=== PATIENT | female | born 1990 | race Two or more races ===

== ENCOUNTER 2018-12-03 16:33 | Emergency (ER) | payer SELFPAY ==
[2018-12-03] MEDS ORDERED: PROMETHAZINE HCL 25 MG TABLET PO ONE (18:26)
[2018-12-03] MEDS ORDERED: ACETAMINOPHEN 325 MG TABLET PO ONE (18:26)
--- NOTE | 2018-12-03 18:37 | ER Document Report ---
ED Medical Screen (RME) - General Chief Complaint: Abdominal Pain Stated Complaint: ABDOMINAL PAIN Time Seen by Provider: 12/03/18 18:18 Notes: Patient is a G1, P1 28-year-old female who presents to the emergency department with a chief complaint of lower abdominal pain. She states the pain is on bilateral sides. She has had her pain for the past week. She states that she has had some hot sweats on and off. She took 4 tests at home and 2 were positive and 2 were negative. Her last menstrual cycle was October 08 and states that she has irregular vaginal cycles. Exam: Mildly tender lower abdomen on bilateral sides. I have greeted and performed a rapid initial assessment of this patient. A comprehensive ED assessment and evaluation of the patient, analysis of test results and completion of medical decision making process will be conducted by an additional ED providers. TRAVEL OUTSIDE OF THE [place] IN LAST 30 DAYS: No - Related Data Allergies/Adverse Reactions: No Known Allergies Allergy (Verified 12/03/18 16:34) Past Medical History - Social History Frequency of alcohol use: None Drug Abuse: None Renal/ Medical History: Denies: Hx Peritoneal Dialysis Past Surgical History: Reports: Hx Section, Hx Tonsillectomy Physical Exam - Vital signs Vitals: Temp Pulse Resp BP Pulse Ox 98.6 F 121 H 16 126/75 H 98 12/03/18 16:38 12/03/18 16:38 12/03/18 16:38 12/03/18 16:38 12/03/18 16:38 Course - Vital Signs Vital signs: Temp Pulse Resp BP Pulse Ox 98.6 F 121 H 16 126/75 H 98 12/03/18 16:38 12/03/18 16:38 12/03/18 16:38 12/03/18 16:38 12/03/18 16:38
[2018-12-03 19:21] LABS: ABSOLUTE BASOPHILS # (AUTO) 0.1 10^3/uL (0.0-0.2); ABSOLUTE LYMPHOCYTES (AUTO) 2.4 10^3/uL (0.5-4.7); ABSOLUTE MONOCYTES (AUTO) 0.5 10^3/uL (0.1-1.4); ABSOLUTE NEUT (AUTO) 5.9 10^3/uL (1.7-8.2); BASOPHILS % (AUTO) 1.1 % (0-2); EOSINOPHILS % (AUTO) 0.4 % (0-6); HEMATOCRIT 41.1 % (36.0-47.0); HEMOGLOBIN 13.4 g/dL (12.0-15.5); LYMPHOCYTES % (AUTO) 27.2 % (13-45); MEAN CORPUSCULAR HEMOGLOBIN 28.4 pg (27.0-33.4); MEAN CORPUSCULAR HGB CONC 32.5 g/dL (32.0-36.0); MEAN CORPUSCULAR VOLUME 87 fl (80-97); MONOCYTES % (AUTO) 5.2 % (3-13); PLATELET COUNT 295 10^3/uL (150-450); RED CELL DISTRIBUTION WIDTH 12.9 % (11.5-14.0); SEGMENTED NEUTROPHILS % (AUTO) 66.1 % (42-78); TOTAL CELLS COUNTED % (AUTO) 100 %; WHITE BLOOD COUNT 8.9 10^3/uL (4.0-10.5)
[2018-12-03 19:36] LABS: ALBUMIN 5.1 g/dL (3.5-5.0); ALKALINE PHOSPHATASE 47 U/L (38-126); ANION GAP 11 (5-19); ASPARTATE AMINO TRANSFERASE 20 U/L (14-36); BILIRUBIN,DIRECT 0.2 mg/dL (0.0-0.4); BILIRUBIN,TOTAL 0.3 mg/dL (0.2-1.3); BLOOD UREA NITROGEN 12 mg/dL (7-20); CALCIUM 9.7 mg/dL (8.4-10.2); CARBON DIOXIDE 24 mmol/L (22-30); CHLORIDE 105 mmol/L (98-107); GLUCOSE 89 mg/dL (75-110); POTASSIUM 4.5 mmol/L (3.6-5.0); TOTAL PROTEIN 8.3 g/dL (6.3-8.2)
--- NOTE | 2018-12-03 20:11 | ER Document Report ---
ED GI/ - General Chief Complaint: Abdominal Pain Stated Complaint: ABDOMINAL PAIN Time Seen by Provider: 12/03/18 18:18 Notes: Patient is a 28-year-old female who presents to the emergency department with a chief complaint of lower abdominal pain. Patient states at home that she did have 2- tests and 2+ test. Patient states her last menstrual cycle was October 08, 2018. Patient states she is sexually active and does not use control. Patient states around November 25 she had 2 days of vaginal bleeding that she describes as a spotting. She states that this never turned into a full menstrual cycle for her. Patient reports nausea without vomiting or diarrhea. Patient denies any urinary symptoms. Patient denies fever. Patient states that the lower abdominal pain is sometimes worse on the right and sometimes worse on the left. TRAVEL OUTSIDE OF THE [place] IN LAST 30 DAYS: No - Related Data Allergies/Adverse Reactions: No Known Allergies Allergy (Verified 12/03/18 16:34) Past Medical History - General Information source: Patient - Social History Smoking Status: Current Every Day Smoker Frequency of alcohol use: None Drug Abuse: None Lives with: Family Family History: None Patient has suicidal ideation: No Patient has homicidal ideation: No - Past Medical History Cardiac Medical History: Reports: None Pulmonary Medical History: Reports: None EENT Medical History: Reports: None Neurological Medical History: Reports: None Endocrine Medical History: Reports: None Renal/ Medical History: Reports: None. Denies: Hx Peritoneal Dialysis Malignancy Medical History: Reports: None GI Medical History: Reports: None Musculoskeletal Medical History: Reports None Skin Medical History: Reports None Psychiatric Medical History: Reports: None Traumatic Medical History: Reports: None Infectious Medical History: Reports: None Past Surgical History: Reports: Hx Section, Hx Tonsillectomy Review of Systems - Review of Systems Constitutional: No symptoms reported EENT: No symptoms reported Cardiovascular: No symptoms reported Respiratory: No symptoms reported Gastrointestinal: See HPI Genitourinary: No symptoms reported Female Genitourinary: See HPI Musculoskeletal: No symptoms reported Skin: No symptoms reported Hematologic/Lymphatic: No symptoms reported Neurological/Psychological: No symptoms reported Physical Exam - Vital signs Vitals: Temp Pulse Resp BP Pulse Ox 98.6 F 121 H 16 126/75 H 98 12/03/18 16:38 12/03/18 16:38 12/03/18 16:38 12/03/18 16:38 12/03/18 16:38 Interpretation: Tachycardic - Notes Notes: GENERAL: Well-appearing, well-nourished and in no acute distress. HEAD: Atraumatic, normocephalic. EYES: Pupils equal round and reactive to light, extraocular movements intact, sclera anicteric, conjunctiva are normal. ENT: Nares patent, oropharynx clear without exudates. Moist mucous membranes. NECK: Normal range of motion, supple without lymphadenopathy or JVD. LUNGS: Breath sounds clear to auscultation bilaterally and equal. No wheezes rales or rhonchi. HEART: Regular rate and rhythm without murmurs, rubs or gallops. ABDOMEN: Soft, generalized lower abdominal pain, slightly more tender on the left, hyperactive bowel sounds. No guarding, no rebound. No masses appreciated. BACK: No cervical, thoracic, lumbar midline tenderness. No saddle anesthesia, normal distal neurovascular exam. GENITOURINARY: Deferred. EXTREMITIES: Normal range of motion, no pitting or edema. No clubbing or cyanosis. NEUROLOGICAL: Cranial nerves II through XII grossly intact. Normal speech, normal gait. PSYCH: Normal mood, normal affect. SKIN: Warm, Dry, normal turgor, no rashes or lesions noted. Course - Re-evaluation Re-evalutation: 12/03/18 20:19 Upon initial examination of the patient she is resting comfortably on stretcher. Patient does report that her pain is gone after receiving the Tylenol. Patient does have some lower abdominal tenderness which is slightly more tender on the left. Patient denies vaginal bleeding or discharge. I did recommend a pelvic examination with the patient with a possible ultrasound. Patient states that she would like to leave as her pain did improve after receiving the Tylenol. I did inform the patient that without a pelvic exam and ultrasound cannot rule out ovarian torsion, a pelvic infection that could be causing her pain or any other concerning diagnoses. Will obtain a urinalysis. At this time if the patient does not want a pelvic ultrasound. 12/03/18 20:38 Patient's repeat vital signs are unremarkable. She is not tachycardic or hypotensive. 12/03/18 21:07 Urinalysis did not reveal an infection. Patient continues to deny pain and states that the Tylenol helped. Patient states she is ready go home. I did inform the patient that without a pelvic examination and ultrasound we cannot r ule out specific diagnoses. Patient states she will follow-up with an CREDIT OFFICE MANAGER in the area and return if symptoms worsen. - Vital Signs Vital signs: Temp Pulse Resp BP Pulse Ox 98.6 F 75 16 109/66 98 12/03/18 16:38 12/03/18 18:43 12/03/18 16:38 12/03/18 18:43 12/03/18 16:38 - Laboratory Result Diagrams: 12/03/18 19:01 12/03/18 19:01 Laboratory results interpreted by me: 12/03/18 19:01 Total Protein 8.3 H Albumin 5.1 H 12/03/18 20:19 Lab work was unremarkable without a leukocytosis, alteration in electrolytes or liver function and a negative serum and beta quant. Laboratory 12/03/18 12/03/18 12/03/18 19:01 19:01 19:01 WBC 8.9 RBC 4.70 Hgb 13.4 Hct 41.1 MCV 87 MCH 28.4 MCHC 32.5 RDW 12.9 Plt Count 295 Seg Neutrophils % 66.1 Lymphocytes % 27.2 Monocytes % 5.2 Eosinophils % 0.4 Basophils % 1.1 Absolute Neutrophils 5.9 Absolute Lymphocytes 2.4 Absolute Monocytes 0.5 Absolute Eosinophils 0.0 Absolute Basophils 0.1 Sodium 140.2 Potassium 4.5 Chloride 105 Carbon Dioxide 24 Anion Gap 11 BUN 12 Creatinine 0.56 Est GFR ( Amer) > 60 Est GFR (Non-Af Amer) > 60 Glucose 89 Calcium 9.7 Total Bilirubin 0.3 Direct Bilirubin 0.2 Neonat Total Bilirubin Not Reportable Neonat Direct Bilirubin Not Reportable Neonat Indirect Bili Not Reportable AST 20 ALT 14 Alkaline Phosphatase 47 Total Protein 8.3 H Albumin 5.1 H Serum HCG, Qual NEGATIVE Beta HCG, Quant < 2.39 Total Beta HCG NEGATIVE Discharge - Discharge Clinical Impression: Pelvic pain Condition: Stable Disposition: HOME, SELF-CARE Additional Instructions: Today you were seen in the emergency department for pelvic pain. Your lab work and urinalysis was unremarkable. You are not . We did check this with blood work. Please follow-up with your CREDIT OFFICE MANAGER. We did offer you a pelvic examination as well as an ultrasound at this time you politely declined. If your symptoms return, worsen or your pain changes please return emergency department. Abdominal Pain There are many causes of abdominal pain. Pain can mean a serious problem requiring surgery (such as appendicitis). It can also be an innocent problem that goes away on its own (such as a viral infection). Often, time must pass to determine the cause of pain. The physician does not feel that hospitalization is necessary, at present. Things may change within the next 24 hours. Call the doctor or come back for re- examination if any problems occur, such as: (1) Pain that becomes more severe, steady, or becomes concentrated in one specific area. Also, pain that is more severe with movement or coughing. (2) Vomiting that persists or becomes more frequent. (3) Blood in the vomitus, urine, or bowel movements. Blood in the stool may have a tarry or black appearance. (4) Shaking chills or fever greater than 100 degrees F. (5) The abdomen becomes more distended or swollen. (6) Bowel movements cease. (7) Failure to improve as expected. Pelvic Pain There are many causes of pain in the pelvic area. The cause could be the tubes, ovaries, uterus, intestines, appendix, pelvic muscles and connective tissue, or the urinary tract. The cause of your pelvic pain is not clear. However, it seems safe to treat you outside the hospital. If the pain sounds like a temporary problem, we sometimes wait to see if it goes away. Other patients may need additional tests, such as pelvic ultrasound or cultures. Conditions may change. Call us or come back for reexamination if any problems occur, such as: (1) Pain that becomes more severe, steady, or becomes concentrated in one specific area. Also, pain that is more severe with movement or coughing. (2) Vomiting that persists or becomes more frequent. (3) Blood in the vomitus, urine, or bowel movements. Blood in the stool may have a tarry or black appearance. (4) Shaking chills or fever greater than 100 degrees. (5) The abdomen becomes more distended or swollen. (6) Bowel movements cease. (7) Heavy vaginal bleeding. Referrals: [facility] [Provider Group] - Follow up as needed
[2018-12-03 20:52] LABS: APPEARANCE,URINE SLIGHTLY-CLOUDY; BILIRUBIN,URINE NEGATIVE (NEGATIVE); COLOR,URINE YELLOW; GLUCOSE, URINE NEGATIVE (NEGATIVE); KETONES,URINE NEGATIVE (NEGATIVE); LEUKOCYTE ESTERASE,URINE NEGATIVE (NEGATIVE); NITRITE,URINE NEGATIVE (NEGATIVE); PROTEIN,URINE NEGATIVE (NEGATIVE); URINE SPECIFIC GRAVITY 1.023; UROBILINOGEN,URINE NEGATIVE mg/dL (<2.0)
[2018-12-03 21:35] VITALS: BP 109/62
== END 2018-12-03 21:40 | disposition home or self-care (01) ==
LOC: ER 16:33
DX: R10.2 Pelvic and perineal pain (principal); R10.819 Abdominal tenderness, unspecified site; R11.0 Nausea; F17.200 Nicotine dependence, unspecified, uncomplicated
CPT/HCPCS: 36415; 80053; 81001; 84702; 84703; 85025; 99284